=== PATIENT | female | born 1945 | race Caucasian/White ===

== ENCOUNTER 2016-12-26 09:03 | Emergency (ER) | payer MEDICAID, MEDICARE, OTHER ==
[~2016-12-26] VITALS: Ht 172.7 cm; Wt 99.8 kg
[~2016-12-26 09:03] MED LIST: FURO20TA PO; FURO20TA3 PO; GABA-494 PO; LEVO125T66 PO; LISI-646 PO; LORA-653 PO; MAGN400T7 PO; METF-370 PO; NOR10T PO; OXYC10TA44 PO; SIMV10TA73 PO; SOTA80TA PO; TRAM50TA2 PO
[2016-12-26] MEDS ORDERED: SODIUM CHLORIDE 0.9% 1,000 ML IV ONE (09:11)
[2016-12-26 11:50] VITALS: BP 184/90
[2016-12-26 12:17] LABS: Basophils # (auto) 0.1 uL; Basophils % (auto) 0.7 % (0.0-2.0); Eosinophils # (auto) 0.1 uL; Hematocrit 41.2 % (36.0-46.0); Hemoglobin 13.5 g/dL (12.2-16.2); Lymphocytes # (auto) 2.3 uL; Lymphocytes % (auto) 18.2 % (10.0-50.0); Mean Corpuscular Hgb Conc. 32.7 g/dL (32.0-36.0); Mean Corpuscular Volume 88.6 fL (80.0-100.0); Mean Platelet Volume 8.5 fL (6.9-10.8); Monocytes # (auto) 0.9 uL; Monocytes % (auto) 7.2 % (0.0-12.0); Neutrophils # (auto) 9.1 uL; Neutrophils % (auto) 72.9 % (37.0-80.0); Nucleated Red Blood Cells % 0.2 %; Platelet Count (auto) 354 10^3/uL (140-450); Red Cell Distribution Width 14.4 % (11.8-14.3); White Blood Cell 12.5 10^3/uL (4.4-10.8)
[2016-12-26 12:32] LABS: INR 0.95 (0.9-1.15); Partial Thromboplastin Time 19.7 sec (22.64-33.71); Prothrombin Time 10.3 sec (9.37-12.3)
[2016-12-26 12:58] LABS: Albumin 3.4 g/dL (3.4-5.0); Alkaline Phosphatase 120 U/L (45-117); Anion Gap 10 (5-15); Aspartate Aminotransferase 26 U/L (15-37); BUN/Creatinine Ratio 14.7; Blood Urea Nitrogen 15 mg/dL (7-18); Calcium 9.5 mg/dL (8.5-10.1); Carbon Dioxide 24 mmol/L (21-32); Chloride 104 mmol/L (98-107); GFR African American 69 mL/min; GFR Non-African American 57 mL/min; Glucose 149 mg/dL (74-106); Potassium 4.4 mmol/L (3.5-5.1); Sodium 138 mmol/L (136-145)
[2016-12-26] MEDS ORDERED: HYDROcodone-ACET 5/325MG TAB PO ONE (13:15)
[2016-12-26] MEDS ORDERED: LEVOFLOXACIN 500 MG TAB PO ONE (13:45)
[2016-12-26 14:09] LABS: Urine Bilirubin Negative (Negative); Urine Blood 2+ /uL (Negative); Urine Color Yellow (Yellow); Urine Glucose Normal (Normal); Urine Ketone Negative (Negative); Urine Nitrite Negative (Negative); Urine RBC 41 /hpf (0 - 4); Urine Urobilinogen Normal (Negative); Urine WBC Clumps PRESENT /hpf (None Seen)
[2016-12-26 14:23] LABS: B-Type Natriuretic Peptide 231.43 pg/mL (0-100)
[2016-12-26 14:29] LABS: Temperature: 22.7 C (20.0-25.0)
== END 2016-12-26 14:31 | disposition home or self-care (01) ==
LOC: EDBD 09:03 → ER 09:03
DX: S52.125A Nondisplaced fracture of head of left radius, initial encounter for closed fracture (principal); I11.0 Hypertensive heart disease with heart failure; I50.9 Heart failure, unspecified; E11.9 Type 2 diabetes mellitus without complications; I48.91 Unspecified atrial fibrillation; E78.5 Hyperlipidemia, unspecified; Z90.49 Acquired absence of other specified parts of digestive tract; Z95.0 Presence of cardiac pacemaker; Z79.899 Other long term (current) drug therapy; Z88.2 Allergy status to sulfonamides; Z88.8 Allergy status to other drugs, medicaments and biological substances; W01.0XXA Fall on same level from slipping, tripping and stumbling without subsequent striking against object, initial encounter; Y93.89 Activity, other specified; Y99.8 Other external cause status; Y92.89 Other specified places as the place of occurrence of the external cause
CPT/HCPCS: 29125; 36415; 70450; 71010; 73110; 80053; 81001; 83880; 84484; 85025; 85610; 85730; 96360; 96361; 99285; J7030

== ENCOUNTER 2017-08-03 23:04 | Inpatient (IN) | payer OTHER ==
[~2017-08-03] VITALS: Ht 170.2 cm; Wt 84.1 kg
[~2017-08-03 23:04] MED LIST changes: -GABA-494 PO; +GABA100C9 PO
[2017-08-04] MEDS ORDERED: SODIUM CHLORIDE 0.9% 1,000 ML IVB ONE (01:47)
[2017-08-04] MEDS ORDERED: ONDANSETRON HCL 4 MG/2 ML VIAL IV ONE (02:00)
[2017-08-04] MEDS ORDERED: HYDROmorphone HCL 2 MG/ML VL IV ONE (02:00)
[2017-08-04 02:50] LABS: Basophils # (auto) 0.1 uL; Basophils % (auto) 0.4 % (0.0-2.0); Eosinophils # (auto) 0.3 uL; Eosinophils % (auto) 1.6 % (0.0-7.0); Hematocrit 30.7 % (36.0-46.0); Hemoglobin 9.8 g/dL (12.2-16.2); Lymphocytes # (auto) 1.5 uL; Lymphocytes % (auto) 9.4 % (10.0-50.0); Mean Corpuscular Hemoglobin 28.4 pg (28.0-32.0); Mean Corpuscular Hgb Conc. 32.1 g/dL (32.0-36.0); Mean Corpuscular Volume 88.5 fL (80.0-100.0); Monocytes # (auto) 1.1 uL; Monocytes % (auto) 6.8 % (0.0-12.0); Neutrophils # (auto) 13.4 uL; Neutrophils % (auto) 81.8 % (37.0-80.0); Platelet Count (auto) 287 10^3/uL (140-450); Red Blood Cells 3.47 10^6/uL (4.0-5.20); Red Cell Distribution Width 15.7 % (11.8-14.3); White Blood Cell 16.4 10^3/uL (4.4-10.8)
[2017-08-04 02:55] LABS: INR 0.95 (0.9-1.15); Partial Thromboplastin Time 24.3 sec (23.78-33.04); Prothrombin Time 10.2 sec (9.27-12.13)
[2017-08-04 02:56] LABS: BUN/Creatinine Ratio 22.5; Calcium 8.8 mg/dL (8.5-10.1); Potassium 4.4 mmol/L (3.5-5.1)
[2017-08-04 03:01] LABS: Bilirubin, Total 0.4 mg/dL (0.2-1.0); Total Protein 7.1 g/dL (6.4-8.2)
[2017-08-04] MEDS ORDERED: MEPERIDINE HCL (25 MG/ML) 1ML VIAL IV ONE ×2 (04:00→06:15)
[2017-08-04] MEDS: MAGNESIUM SULFATE 1GM/100ML 100 ML IV SCH ×2 (04:17→05:03)
[2017-08-04] MEDS ORDERED: SOD CHL 0.45% 1,000 ML IV ONE (05:45)
[2017-08-04] MEDS ORDERED: ONDANSETRON HCL 4 MG/2 ML VIAL IV PRN (05:45)
[2017-08-04] MEDS ORDERED: MORPHINE SULF INJ 2 MG/ML SYRINGE 1ML IV PRN (05:45)
[2017-08-04] MEDS ORDERED: MORPHINE SULFATE 8mg/ml INJ SDV IV PRN (05:45)
[2017-08-04] MEDS ORDERED: NITROGLYCERIN 0.4 MG SL TAB SL PRN (05:45)
[2017-08-04 07:14] LABS: Basophils # (auto) 0.1 uL; Basophils % (auto) 0.4 % (0.0-2.0); Eosinophils # (auto) 0.1 uL; Eosinophils % (auto) 0.7 % (0.0-7.0); Hematocrit 33.9 % (36.0-46.0); Hemoglobin 10.9 g/dL (12.2-16.2); Lymphocytes % (auto) 6.1 % (10.0-50.0); Mean Corpuscular Hemoglobin 29.4 pg (28.0-32.0); Mean Corpuscular Hgb Conc. 32.2 g/dL (32.0-36.0); Mean Corpuscular Volume 91.2 fL (80.0-100.0); Monocytes # (auto) 1.1 uL; Monocytes % (auto) 7.2 % (0.0-12.0); Neutrophils # (auto) 13.5 uL; Neutrophils % (auto) 85.6 % (37.0-80.0); Platelet Count (auto) 280 10^3/uL (140-450); Red Blood Cells 3.71 10^6/uL (4.0-5.20); Red Cell Distribution Width 15.7 % (11.8-14.3); White Blood Cell 15.8 10^3/uL (4.4-10.8)
[2017-08-04 07:30] LABS: Albumin 3.2 g/dL (3.4-5.0); BUN/Creatinine Ratio 24.3; Potassium 4.4 mmol/L (3.5-5.1)
[2017-08-04 07:33] LABS: Bilirubin, Total 0.5 mg/dL (0.2-1.0); Total Protein 7.5 g/dL (6.4-8.2)
[2017-08-04 08:06] LABS: Urine Bacteria FEW /hpf (None Seen); Urine Blood 2+ /uL (Negative); Urine Specific Gravity 1.014 (1.001-1.035); Urine WBC 109 /hpf (0 - 5); Urine WBC Clumps PRESENT /hpf (None Seen)
[2017-08-04] MEDS ORDERED: DEXTROSE (50%) 50ML SYRG IV PRN (08:15)
[2017-08-04] MEDS: LEVOTHYROXINE SODIUM 100 MCG TAB PO SCH (08:22)
[2017-08-04] MEDS: LORazepam 0.5 MG TAB PO PRN ×3 (08:22→22:17)
[2017-08-04 09:50] VITALS: BP 189/112
[2017-08-04] MEDS: LISINOPRIL 20 MG TAB PO SCH (10:26)
[2017-08-04] MEDS: SOTALOL HCL 80 MG TAB PO SCH ×2 (10:26→22:17)
[2017-08-04] MEDS: FUROSEMIDE 20 MG TAB PO SCH (10:27)
[2017-08-04] MEDS: HYDROcodone-ACET 5/325MG TAB PO PRN ×4 (11:04→22:18)
[2017-08-04] MEDS: InsuLIN REG 1unit/0.01ml Soln (100units/ml) SC SCH ×2 (12:20→17:14)
[2017-08-04] MEDS: ACCU-CHEK COMFORT CURVE STRIP VI SCH ×2 (12:21→17:14)
[2017-08-04 12:50] VITALS: BP 191/83
[2017-08-04] MEDS: hydrALAZINE HCL 25 MG TAB PO PRN (13:06)
[2017-08-04] MEDS: amLODIPine BESYLATE 5 MG TAB PO SCH (13:06)
[2017-08-04 16:49] VITALS: BP 150/89
[2017-08-04 22:00] VITALS: BP 153/84
[2017-08-04] MEDS ORDERED: cefTRIAXone 1GM/10ml IVPUSH 10 ML IV SCH (22:00)
[2017-08-05] MEDS: ACCU-CHEK COMFORT CURVE STRIP VI SCH ×5 (00:08→23:32)
[2017-08-05] MEDS: HYDROcodone-ACET 5/325MG TAB PO PRN ×2 (03:30→08:14)
[2017-08-05 05:00] VITALS: BP 156/78
[2017-08-05 06:00] LABS: Basophils # (auto) 0 uL; Basophils % (auto) 0.3 % (0.0-2.0); Eosinophils # (auto) 0.1 uL; Eosinophils % (auto) 0.5 % (0.0-7.0); Hematocrit 30.9 % (36.0-46.0); Hemoglobin 10.1 g/dL (12.2-16.2); Lymphocytes # (auto) 0.9 uL; Lymphocytes % (auto) 6.2 % (10.0-50.0); Mean Corpuscular Hgb Conc. 32.7 g/dL (32.0-36.0); Mean Corpuscular Volume 88.7 fL (80.0-100.0); Monocytes # (auto) 1.5 uL; Monocytes % (auto) 10.6 % (0.0-12.0); Neutrophils % (auto) 82.4 % (37.0-80.0); Platelet Count (auto) 281 10^3/uL (140-450); Red Blood Cells 3.48 10^6/uL (4.0-5.20); Red Cell Distribution Width 15.3 % (11.8-14.3); White Blood Cell 14.6 10^3/uL (4.4-10.8)
[2017-08-05] MEDS: InsuLIN REG 1unit/0.01ml Soln (100units/ml) SC SCH ×5 (06:00→23:33)
[2017-08-05] MEDS: LEVOTHYROXINE SODIUM 25 MCG TAB PO SCH (06:07)
[2017-08-05] MEDS: LEVOTHYROXINE SODIUM 100 MCG TAB PO SCH (06:07)
[2017-08-05 06:16] LABS: Albumin 2.7 g/dL (3.4-5.0); Calcium 8.4 mg/dL (8.5-10.1); Potassium 3.7 mmol/L (3.5-5.1)
[2017-08-05 06:21] LABS: BUN/Creatinine Ratio 22.9; Bilirubin, Total 0.8 mg/dL (0.2-1.0); Total Protein 6.6 g/dL (6.4-8.2)
[2017-08-05 09:00] VITALS: BP 176/73
[2017-08-05] MEDS ORDERED: HYDROcodone-ACET 10/325MG TAB PO ONE (09:00)
[2017-08-05] MEDS ORDERED: HYDROcodone-ACET 10/325MG TAB PO PRN (09:00)
[2017-08-05] MEDS: LORazepam 0.5 MG TAB PO PRN ×2 (10:51→16:04)
[2017-08-05] MEDS: LISINOPRIL 20 MG TAB PO SCH (10:58)
[2017-08-05] MEDS: SOTALOL HCL 80 MG TAB PO SCH ×2 (10:59→21:41)
[2017-08-05] MEDS: FUROSEMIDE 20 MG TAB PO SCH (11:00)
[2017-08-05] MEDS: amLODIPine BESYLATE 5 MG TAB PO SCH (11:00)
[2017-08-05 13:00] VITALS: BP 161/77
[2017-08-05] MEDS: OXYCODONE W/ ACETAMINOPHEN 5/325MG TABLET PO PRN ×2 (13:35→18:58)
[2017-08-05] MEDS: MEROPENEM 1gm/20ml IVPUSH 20 ML IV SCH ×2 (14:53→21:41)
[2017-08-05] MEDS: MORPHINE SULF 15mg ER tab PO SCH ×2 (16:04→21:41)
[2017-08-05 16:45] VITALS: BP 168/89
[2017-08-05 22:00] VITALS: BP 125/67
[2017-08-06 04:42] VITALS: BP 115/79
[2017-08-06] MEDS: MEROPENEM 1gm/20ml IVPUSH 20 ML IV SCH ×3 (05:36→21:31)
[2017-08-06] MEDS: ACCU-CHEK COMFORT CURVE STRIP VI SCH ×4 (05:37→23:44)
[2017-08-06] MEDS: MORPHINE SULF 15mg ER tab PO SCH (05:37)
[2017-08-06] MEDS: InsuLIN REG 1unit/0.01ml Soln (100units/ml) SC SCH ×4 (05:38→23:43)
[2017-08-06] MEDS: LEVOTHYROXINE SODIUM 100 MCG TAB PO SCH (06:01)
[2017-08-06] MEDS: LEVOTHYROXINE SODIUM 25 MCG TAB PO SCH (06:02)
[2017-08-06 07:01] LABS: Anion Gap 10 (5-15); BUN/Creatinine Ratio 21.2; Blood Urea Nitrogen 28 mg/dL (7-18); Carbon Dioxide 28 mmol/L (21-32); Chloride 98 mmol/L (98-107); GFR African American 51 mL/min; GFR Non-African American 42 mL/min; Glucose 162 mg/dL (74-106); Potassium 3.7 mmol/L (3.5-5.1); Sodium 136 mmol/L (136-145)
[2017-08-06 07:09] LABS: CRP High Sensitivity > 19.0 mg/dL (< 0.3)
[2017-08-06 07:36] LABS: Basophils # (auto) 0 uL; Basophils % (auto) 0.3 % (0.0-2.0); Eosinophils # (auto) 0.2 uL; Eosinophils % (auto) 1.4 % (0.0-7.0); Hematocrit 33.4 % (36.0-46.0); Hemoglobin 10.7 g/dL (12.2-16.2); Lymphocytes # (auto) 1.6 uL; Lymphocytes % (auto) 10.1 % (10.0-50.0); Mean Corpuscular Hemoglobin 28.5 pg (28.0-32.0); Mean Corpuscular Hgb Conc. 31.9 g/dL (32.0-36.0); Mean Corpuscular Volume 89.1 fL (80.0-100.0); Monocytes # (auto) 2.1 uL; Monocytes % (auto) 13.2 % (0.0-12.0); Platelet Count (auto) 321 10^3/uL (140-450); Red Blood Cells 3.74 10^6/uL (4.0-5.20); Red Cell Distribution Width 15.5 % (11.8-14.3)
[2017-08-06 08:00] VITALS: BP 138/71
[2017-08-06 08:54] VITALS: BP 138/71
[2017-08-06] MEDS ORDERED: VANCOMYCIN PER PHARMACY 0 MG IV SCH (09:30)
[2017-08-06] MEDS: OXYCODONE W/ ACETAMINOPHEN 5/325MG TABLET PO PRN ×2 (09:36→19:03)
[2017-08-06] MEDS: SOTALOL HCL 80 MG TAB PO SCH ×2 (09:36→21:32)
[2017-08-06] MEDS: LISINOPRIL 20 MG TAB PO SCH (09:37)
[2017-08-06] MEDS: amLODIPine BESYLATE 5 MG TAB PO SCH (09:37)
[2017-08-06] MEDS: FUROSEMIDE 20 MG TAB PO SCH (09:37)
[2017-08-06] MEDS: VANCOMYCIN 750 MG in D5W 5% 250 ML IV SCH ×2 (09:38→21:47)
[2017-08-06 12:47] VITALS: BP 132/65
[2017-08-06] MEDS: MORPHINE SULF 30 mg ER tab PO SCH ×2 (14:55→21:33)
[2017-08-06 17:03] VITALS: BP 122/62
[2017-08-06 21:54] VITALS: BP 111/65
[2017-08-07] MEDS: OXYCODONE W/ ACETAMINOPHEN 5/325MG TABLET PO PRN (01:58)
[2017-08-07 05:00] VITALS: BP 112/64
[2017-08-07] MEDS: MORPHINE SULF 30 mg ER tab PO SCH ×3 (05:35→22:29)
[2017-08-07] MEDS: MEROPENEM 1gm/20ml IVPUSH 20 ML IV SCH ×3 (05:35→22:27)
[2017-08-07] MEDS: InsuLIN REG 1unit/0.01ml Soln (100units/ml) SC SCH ×3 (05:36→18:00)
[2017-08-07] MEDS: ACCU-CHEK COMFORT CURVE STRIP VI SCH ×3 (05:36→18:08)
[2017-08-07 05:49] LABS: Basophils # (auto) 0.1 uL; Basophils % (auto) 0.4 % (0.0-2.0); Eosinophils # (auto) 0.5 uL; Eosinophils % (auto) 3.6 % (0.0-7.0); Hematocrit 29.8 % (36.0-46.0); Hemoglobin 9.8 g/dL (12.2-16.2); Lymphocytes # (auto) 1.4 uL; Lymphocytes % (auto) 10.3 % (10.0-50.0); Mean Corpuscular Hemoglobin 29.3 pg (28.0-32.0); Mean Corpuscular Hgb Conc. 32.9 g/dL (32.0-36.0); Mean Corpuscular Volume 89.2 fL (80.0-100.0); Monocytes # (auto) 1.7 uL; Monocytes % (auto) 13.1 % (0.0-12.0); Neutrophils # (auto) 9.7 uL; Neutrophils % (auto) 72.6 % (37.0-80.0); Nucleated Red Blood Cells % 0.1 %; Platelet Count (auto) 309 10^3/uL (140-450); Red Blood Cells 3.34 10^6/uL (4.0-5.20); Red Cell Distribution Width 15.4 % (11.8-14.3); White Blood Cell 13.4 10^3/uL (4.4-10.8)
[2017-08-07] MEDS: LEVOTHYROXINE SODIUM 100 MCG TAB PO SCH (06:03)
[2017-08-07] MEDS: LEVOTHYROXINE SODIUM 25 MCG TAB PO SCH (06:03)
[2017-08-07 06:12] LABS: BUN/Creatinine Ratio 24.2; CRP High Sensitivity 14.8 mg/dL (< 0.3); Calcium 8.4 mg/dL (8.5-10.1); Potassium 3.5 mmol/L (3.5-5.1)
[2017-08-07 08:30] VITALS: BP 125/53
[2017-08-07 09:00] VITALS: BP 125/53
[2017-08-07] MEDS ORDERED: MEROPENEM 1gm/20ml IVPUSH 20 ML IV SCH (10:00)
[2017-08-07] MEDS: SOTALOL HCL 80 MG TAB PO SCH ×2 (10:21→22:41)
[2017-08-07] MEDS: VANCOMYCIN 750 MG in D5W 5% 250 ML IV SCH ×2 (10:21→22:27)
[2017-08-07] MEDS: FUROSEMIDE 20 MG TAB PO SCH (10:22)
[2017-08-07] MEDS: LISINOPRIL 20 MG TAB PO SCH (10:22)
[2017-08-07] MEDS: amLODIPine BESYLATE 5 MG TAB PO SCH (10:22)
[2017-08-07 13:00] VITALS: BP 164/99
[2017-08-07 17:00] VITALS: BP 135/67
[2017-08-07 22:00] VITALS: BP 146/81
[2017-08-08] MEDS: ACCU-CHEK COMFORT CURVE STRIP VI SCH ×4 (00:41→17:41)
[2017-08-08] MEDS: InsuLIN REG 1unit/0.01ml Soln (100units/ml) SC SCH ×4 (02:18→17:43)
[2017-08-08] MEDS: MORPHINE SULF 30 mg ER tab PO SCH ×3 (05:24→22:10)
[2017-08-08] MEDS: MEROPENEM 1gm/20ml IVPUSH 20 ML IV SCH ×3 (05:27→22:10)
[2017-08-08 05:48] VITALS: BP 150/70
[2017-08-08 05:53] LABS: Basophils # (auto) 0.1 uL; Basophils % (auto) 0.5 % (0.0-2.0); Eosinophils # (auto) 0.3 uL; Eosinophils % (auto) 3.2 % (0.0-7.0); Hematocrit 31.5 % (36.0-46.0); Hemoglobin 10.5 g/dL (12.2-16.2); Lymphocytes % (auto) 10.2 % (10.0-50.0); Mean Corpuscular Hemoglobin 29.6 pg (28.0-32.0); Mean Corpuscular Hgb Conc. 33.3 g/dL (32.0-36.0); Mean Corpuscular Volume 88.7 fL (80.0-100.0); Monocytes # (auto) 1.5 uL; Monocytes % (auto) 14.6 % (0.0-12.0); Neutrophils # (auto) 7.3 uL; Neutrophils % (auto) 71.5 % (37.0-80.0); Platelet Count (auto) 337 10^3/uL (140-450); Red Blood Cells 3.55 10^6/uL (4.0-5.20); Red Cell Distribution Width 15.5 % (11.8-14.3); White Blood Cell 10.3 10^3/uL (4.4-10.8)
[2017-08-08] MEDS: LEVOTHYROXINE SODIUM 100 MCG TAB PO SCH (05:59)
[2017-08-08] MEDS: LEVOTHYROXINE SODIUM 25 MCG TAB PO SCH (05:59)
[2017-08-08 06:04] LABS: BUN/Creatinine Ratio 29.7; Calcium 8.4 mg/dL (8.5-10.1); Potassium 3.5 mmol/L (3.5-5.1)
[2017-08-08 07:35] VITALS: BP 148/53
[2017-08-08] MEDS: SOTALOL HCL 80 MG TAB PO SCH ×2 (09:38→22:10)
[2017-08-08] MEDS: FUROSEMIDE 20 MG TAB PO SCH (09:39)
[2017-08-08] MEDS: amLODIPine BESYLATE 5 MG TAB PO SCH (09:39)
[2017-08-08] MEDS: LISINOPRIL 20 MG TAB PO SCH (09:40)
[2017-08-08] MEDS: VANCOMYCIN 750 MG in D5W 5% 250 ML IV SCH ×2 (10:02→22:09)
[2017-08-08 10:33] VITALS: BP 148/53
[2017-08-08] MEDS: D5W/SOD CHLO 0.9% 1,000 ML IV SCH ×2 (11:56→20:56)
[2017-08-08] MEDS: OXYCODONE W/ ACETAMINOPHEN 5/325MG TABLET PO PRN (11:57)
[2017-08-08 12:34] VITALS: BP_SYST 157; BP_SYST 177; BP_DIAS 59; BP_DIAS 71
[2017-08-08] MEDS: hydrALAZINE HCL 25 MG TAB PO PRN (12:56)
[2017-08-08 17:31] VITALS: BP 159/61
[2017-08-08 22:00] VITALS: BP 152/95
[2017-08-09] VITALS (7 sets, daily range): BP systolic 141–159; BP diastolic 72–96
[2017-08-09] MEDS: ACCU-CHEK COMFORT CURVE STRIP VI SCH ×4 (00:24→16:54)
[2017-08-09] MEDS: InsuLIN REG 1unit/0.01ml Soln (100units/ml) SC SCH ×4 (00:24→16:54)
[2017-08-09 04:20] LABS: Urine Bacteria MANY /hpf (None Seen); Urine Blood 1+ /uL (Negative); Urine Mucus FEW (None Seen); Urine Specific Gravity 1.019 (1.001-1.035); Urine WBC 1552 /hpf (0 - 5); Urine WBC Clumps PRESENT /hpf (None Seen)
[2017-08-09 04:22] LABS: Urine Budding Yeast Occasional /hpf (None Seen)
[2017-08-09 05:44] LABS: Basophils # (auto) 0 uL; Basophils % (auto) 0.5 % (0.0-2.0); Eosinophils # (auto) 0.4 uL; Eosinophils % (auto) 3.7 % (0.0-7.0); Hematocrit 31.3 % (36.0-46.0); Hemoglobin 10.5 g/dL (12.2-16.2); Lymphocytes # (auto) 1.2 uL; Mean Corpuscular Hemoglobin 29.9 pg (28.0-32.0); Mean Corpuscular Hgb Conc. 33.6 g/dL (32.0-36.0); Mean Corpuscular Volume 89.1 fL (80.0-100.0); Monocytes # (auto) 1.6 uL; Monocytes % (auto) 16.3 % (0.0-12.0); Neutrophils # (auto) 6.7 uL; Neutrophils % (auto) 67.5 % (37.0-80.0); Nucleated Red Blood Cells % 0.1 %; Platelet Count (auto) 320 10^3/uL (140-450); Red Blood Cells 3.52 10^6/uL (4.0-5.20); Red Cell Distribution Width 15.2 % (11.8-14.3); White Blood Cell 9.9 10^3/uL (4.4-10.8)
[2017-08-09 05:52] LABS: INR 0.93 (0.9-1.15); Partial Thromboplastin Time 28.9 sec (23.78-33.04)
[2017-08-09 06:32] LABS: BUN/Creatinine Ratio 30.1; CRP High Sensitivity 8.17 mg/dL (< 0.3); Calcium 8.2 mg/dL (8.5-10.1); Potassium 3.4 mmol/L (3.5-5.1)
[2017-08-09] MEDS: MORPHINE SULF 30 mg ER tab PO SCH ×4 (07:06→21:26)
[2017-08-09] MEDS: MEROPENEM 1gm/20ml IVPUSH 20 ML IV SCH ×3 (07:06→21:22)
[2017-08-09] MEDS: D5W/SOD CHLO 0.9% 1,000 ML IV SCH ×2 (07:07→16:31)
[2017-08-09] MEDS: LEVOTHYROXINE SODIUM 25 MCG TAB PO SCH (07:07)
[2017-08-09] MEDS: LEVOTHYROXINE SODIUM 100 MCG TAB PO SCH (07:07)
[2017-08-09] MEDS ORDERED: POTASSIUM CHLORIDE 40 MEQ in D5W 5% 1,000 ML IV SCH (08:45)
[2017-08-09] MEDS: VANCOMYCIN 750 MG in D5W 5% 250 ML IV SCH ×2 (10:07→21:23)
[2017-08-09] MEDS: amLODIPine BESYLATE 5 MG TAB PO SCH (10:07)
[2017-08-09] MEDS: LISINOPRIL 20 MG TAB PO SCH (10:07)
[2017-08-09] MEDS: FUROSEMIDE 20 MG TAB PO SCH (10:08)
[2017-08-09] MEDS: SOTALOL HCL 80 MG TAB PO SCH ×2 (10:08→21:25)
[2017-08-09] MEDS: POTASSIUM CHL 20MEQ/100ML 100 ML IV SCH ×2 (10:36→12:05)
[2017-08-09] MEDS: OXYCODONE W/ ACETAMINOPHEN 5/325MG TABLET PO PRN (12:29)
[2017-08-10] MEDS: D5W/SOD CHLO 0.9% 1,000 ML IV SCH ×3 (02:30→22:42)
[2017-08-10 05:00] VITALS: BP 155/79
[2017-08-10 05:22] LABS: Basophils # (auto) 0.1 uL; Basophils % (auto) 0.5 % (0.0-2.0); Eosinophils # (auto) 0.2 uL; Eosinophils % (auto) 2.2 % (0.0-7.0); Hematocrit 31.1 % (36.0-46.0); Hemoglobin 10.1 g/dL (12.2-16.2); Lymphocytes # (auto) 1.3 uL; Lymphocytes % (auto) 11.5 % (10.0-50.0); Mean Corpuscular Hemoglobin 28.7 pg (28.0-32.0); Mean Corpuscular Hgb Conc. 32.4 g/dL (32.0-36.0); Mean Corpuscular Volume 88.6 fL (80.0-100.0); Monocytes # (auto) 1.4 uL; Monocytes % (auto) 12.9 % (0.0-12.0); Neutrophils # (auto) 8.2 uL; Neutrophils % (auto) 72.9 % (37.0-80.0); Platelet Count (auto) 336 10^3/uL (140-450); White Blood Cell 11.2 10^3/uL (4.4-10.8)
[2017-08-10] MEDS: MORPHINE SULF 30 mg ER tab PO SCH ×4 (05:25→22:20)
[2017-08-10] MEDS: LEVOTHYROXINE SODIUM 100 MCG TAB PO SCH ×2 (05:26→06:58)
[2017-08-10 05:40] LABS: Calcium 8.1 mg/dL (8.5-10.1); Potassium 3.6 mmol/L (3.5-5.1)
[2017-08-10] MEDS: MEROPENEM 1gm/20ml IVPUSH 20 ML IV SCH ×3 (05:41→22:20)
[2017-08-10] MEDS: InsuLIN REG 1unit/0.01ml Soln (100units/ml) SC SCH ×4 (05:47→18:00)
[2017-08-10] MEDS: ACCU-CHEK COMFORT CURVE STRIP VI SCH ×4 (05:47→17:19)
[2017-08-10] MEDS: LEVOTHYROXINE SODIUM 25 MCG TAB PO SCH ×2 (05:48→06:58)
[2017-08-10 08:00] VITALS: BP 134/78
[2017-08-10 08:19] VITALS: BP 134/78
[2017-08-10] MEDS ORDERED: hydrALAZINE HCL 20 MG/ML VL IV PRN (09:15)
[2017-08-10] MEDS: SOTALOL HCL 80 MG TAB PO SCH ×2 (09:28→22:20)
[2017-08-10] MEDS: VANCOMYCIN 750 MG in D5W 5% 250 ML IV SCH (09:28)
[2017-08-10] MEDS: FUROSEMIDE 20 MG TAB PO SCH (09:29)
[2017-08-10] MEDS: amLODIPine BESYLATE 5 MG TAB PO SCH (09:29)
[2017-08-10] MEDS: LISINOPRIL 20 MG TAB PO SCH (09:30)
[2017-08-10] MEDS: FLUCONAZOLE 200MG/100ML 100 ML IV SCH (11:20)
[2017-08-10 11:57] VITALS: BP 130/79
[2017-08-10 22:00] VITALS: BP 151/77
[2017-08-11] VITALS (7 sets, daily range): BP systolic 125–167; BP diastolic 60–85
[2017-08-11] MEDS: ACCU-CHEK COMFORT CURVE STRIP VI SCH ×4 (00:18→19:25)
[2017-08-11] MEDS: MEROPENEM 1gm/20ml IVPUSH 20 ML IV SCH ×3 (05:40→23:06)
[2017-08-11] MEDS: MORPHINE SULF 30 mg ER tab PO SCH ×2 (05:41→14:05)
[2017-08-11] MEDS: LEVOTHYROXINE SODIUM 100 MCG TAB PO SCH (05:59)
[2017-08-11] MEDS: LEVOTHYROXINE SODIUM 25 MCG TAB PO SCH (05:59)
[2017-08-11] MEDS: InsuLIN REG 1unit/0.01ml Soln (100units/ml) SC SCH ×4 (06:00→18:00)
[2017-08-11 06:07] LABS: Basophils # (auto) 0 uL; Basophils % (auto) 0.4 % (0.0-2.0); Eosinophils # (auto) 0.3 uL; Hematocrit 29.1 % (36.0-46.0); Hemoglobin 9.6 g/dL (12.2-16.2); Lymphocytes # (auto) 1.5 uL; Lymphocytes % (auto) 14.3 % (10.0-50.0); Mean Corpuscular Hemoglobin 29.1 pg (28.0-32.0); Mean Corpuscular Hgb Conc. 32.8 g/dL (32.0-36.0); Mean Corpuscular Volume 88.9 fL (80.0-100.0); Monocytes # (auto) 1.5 uL; Monocytes % (auto) 14.3 % (0.0-12.0); Neutrophils # (auto) 7.3 uL; Platelet Count (auto) 351 10^3/uL (140-450); Red Blood Cells 3.28 10^6/uL (4.0-5.20); Red Cell Distribution Width 15.1 % (11.8-14.3); White Blood Cell 10.7 10^3/uL (4.4-10.8)
[2017-08-11 06:33] LABS: Potassium 3.8 mmol/L (3.5-5.1)
[2017-08-11 06:38] LABS: Albumin 2.3 g/dL (3.4-5.0); BUN/Creatinine Ratio 16.7; Calcium 8.5 mg/dL (8.5-10.1)
[2017-08-11 06:50] LABS: Bilirubin, Total 0.5 mg/dL (0.2-1.0); Total Protein 6.5 g/dL (6.4-8.2)
[2017-08-11] MEDS: D5W/SOD CHLO 0.9% 1,000 ML IV SCH ×2 (09:03→19:25)
[2017-08-11] MEDS: SOTALOL HCL 80 MG TAB PO SCH ×2 (09:39→23:07)
[2017-08-11] MEDS: amLODIPine BESYLATE 5 MG TAB PO SCH (09:39)
[2017-08-11] MEDS: FUROSEMIDE 20 MG TAB PO SCH (09:39)
[2017-08-11] MEDS: ENOXAPARIN SOD 40 MG/0.4 ML SYRINGE SC SCH (09:40)
[2017-08-11] MEDS: LISINOPRIL 20 MG TAB PO SCH (09:40)
[2017-08-11] MEDS: FLUCONAZOLE 200MG/100ML 100 ML IV SCH (11:32)
[2017-08-11] MEDS: FAMOTIDINE 20 MG TAB PO SCH (14:09)
[2017-08-11] MEDS: ASPirin-EC 81 mg tab PO SCH (14:10)
[2017-08-11] MEDS: ATORVASTATIN 20 MG TAB PO SCH (23:06)
[2017-08-12 05:00] VITALS: BP 137/71
[2017-08-12] MEDS: ACCU-CHEK COMFORT CURVE STRIP VI SCH ×5 (06:00→23:55)
[2017-08-12] MEDS: InsuLIN REG 1unit/0.01ml Soln (100units/ml) SC SCH ×5 (06:00→23:56)
[2017-08-12 06:07] LABS: Basophils # (auto) 0.1 uL; Basophils % (auto) 0.4 % (0.0-2.0); Eosinophils # (auto) 0.2 uL; Eosinophils % (auto) 1.7 % (0.0-7.0); Hematocrit 28.7 % (36.0-46.0); Hemoglobin 9.6 g/dL (12.2-16.2); Lymphocytes # (auto) 1.5 uL; Lymphocytes % (auto) 11.9 % (10.0-50.0); Mean Corpuscular Hemoglobin 29.4 pg (28.0-32.0); Mean Corpuscular Hgb Conc. 33.4 g/dL (32.0-36.0); Monocytes # (auto) 1.7 uL; Monocytes % (auto) 13.9 % (0.0-12.0); Neutrophils # (auto) 8.9 uL; Neutrophils % (auto) 72.1 % (37.0-80.0); Platelet Count (auto) 360 10^3/uL (140-450); Red Blood Cells 3.26 10^6/uL (4.0-5.20); Red Cell Distribution Width 14.6 % (11.8-14.3); White Blood Cell 12.4 10^3/uL (4.4-10.8)
[2017-08-12 06:13] LABS: BUN/Creatinine Ratio 17.5; Calcium 8.2 mg/dL (8.5-10.1); Potassium 3.2 mmol/L (3.5-5.1)
[2017-08-12] MEDS: LEVOTHYROXINE SODIUM 100 MCG TAB PO SCH (06:59)
[2017-08-12] MEDS: MEROPENEM 1gm/20ml IVPUSH 20 ML IV SCH ×3 (06:59→23:05)
[2017-08-12] MEDS: LEVOTHYROXINE SODIUM 25 MCG TAB PO SCH (06:59)
[2017-08-12] MEDS: D5W/SOD CHLO 0.9% 1,000 ML IV SCH ×2 (07:00→14:33)
[2017-08-12 08:00] VITALS: BP 133/70
[2017-08-12] MEDS: FUROSEMIDE 20 MG TAB PO SCH (10:00)
[2017-08-12] MEDS: ENOXAPARIN SOD 40 MG/0.4 ML SYRINGE SC SCH (10:32)
[2017-08-12] MEDS: FAMOTIDINE 20 MG TAB PO SCH (10:34)
[2017-08-12] MEDS: LISINOPRIL 20 MG TAB PO SCH (10:34)
[2017-08-12] MEDS: ASPirin-EC 81 mg tab PO SCH (10:35)
[2017-08-12] MEDS: amLODIPine BESYLATE 5 MG TAB PO SCH (10:35)
[2017-08-12] MEDS: SOTALOL HCL 80 MG TAB PO SCH ×2 (10:36→23:07)
[2017-08-12] MEDS: FLUCONAZOLE 100 MG TAB PO SCH (11:03)
[2017-08-12 12:00] VITALS: BP 135/77
[2017-08-12 15:00] VITALS: BP 141/82
[2017-08-12 22:00] VITALS: BP 156/80
[2017-08-12] MEDS: ATORVASTATIN 20 MG TAB PO SCH (23:07)
[2017-08-13] MEDS: HYDROcodone-ACET 10/325MG TAB PO PRN ×2 (00:10→18:45)
[2017-08-13] MEDS: D5W/SOD CHLO 0.9% 1,000 ML IV SCH ×3 (04:15→22:45)
[2017-08-13 05:42] VITALS: BP 152/98
[2017-08-13] MEDS: InsuLIN REG 1unit/0.01ml Soln (100units/ml) SC SCH ×3 (06:00→17:13)
[2017-08-13] MEDS: ACCU-CHEK COMFORT CURVE STRIP VI SCH ×3 (06:00→17:14)
[2017-08-13 06:03] LABS: Basophils # (auto) 0.1 uL; Basophils % (auto) 0.6 % (0.0-2.0); Eosinophils # (auto) 0.1 uL; Eosinophils % (auto) 1.1 % (0.0-7.0); Hematocrit 28.1 % (36.0-46.0); Hemoglobin 9.4 g/dL (12.2-16.2); Lymphocytes # (auto) 1.4 uL; Lymphocytes % (auto) 12.2 % (10.0-50.0); Mean Corpuscular Hemoglobin 29.3 pg (28.0-32.0); Mean Corpuscular Hgb Conc. 33.4 g/dL (32.0-36.0); Mean Corpuscular Volume 87.7 fL (80.0-100.0); Monocytes # (auto) 1.7 uL; Monocytes % (auto) 15.4 % (0.0-12.0); Neutrophils # (auto) 7.8 uL; Neutrophils % (auto) 70.7 % (37.0-80.0); Platelet Count (auto) 356 10^3/uL (140-450); Red Cell Distribution Width 14.9 % (11.8-14.3); White Blood Cell 11.1 10^3/uL (4.4-10.8)
[2017-08-13] MEDS: MEROPENEM 1gm/20ml IVPUSH 20 ML IV SCH ×3 (06:04→22:45)
[2017-08-13 06:15] LABS: BUN/Creatinine Ratio 20.9; Calcium 8.5 mg/dL (8.5-10.1)
[2017-08-13] MEDS: LEVOTHYROXINE SODIUM 25 MCG TAB PO SCH (06:49)
[2017-08-13] MEDS: LEVOTHYROXINE SODIUM 100 MCG TAB PO SCH (06:49)
[2017-08-13 08:00] VITALS: BP 143/73
[2017-08-13] MEDS: FLUCONAZOLE 100 MG TAB PO SCH (09:49)
[2017-08-13] MEDS: amLODIPine BESYLATE 5 MG TAB PO SCH (09:52)
[2017-08-13] MEDS: SOTALOL HCL 80 MG TAB PO SCH ×2 (09:53→22:46)
[2017-08-13] MEDS: FUROSEMIDE 20 MG TAB PO SCH (09:54)
[2017-08-13] MEDS: LISINOPRIL 20 MG TAB PO SCH (09:54)
[2017-08-13] MEDS: ASPirin-EC 81 mg tab PO SCH (09:55)
[2017-08-13] MEDS: FAMOTIDINE 20 MG TAB PO SCH (09:55)
[2017-08-13] MEDS: ENOXAPARIN SOD 40 MG/0.4 ML SYRINGE SC SCH (10:00)
[2017-08-13 12:00] VITALS: BP 140/71
[2017-08-13] MEDS: POTASSIUM CHL 20MEQ/100ML 100 ML IV SCH ×2 (12:18→14:35)
[2017-08-13 16:57] VITALS: BP 140/73
[2017-08-13 22:00] VITALS: BP 124/62
[2017-08-13] MEDS: ATORVASTATIN 20 MG TAB PO SCH (22:46)
[2017-08-14] MEDS: HYDROcodone-ACET 10/325MG TAB PO PRN (02:09)
[2017-08-14 06:00] VITALS: BP 126/72
[2017-08-14] MEDS: InsuLIN REG 1unit/0.01ml Soln (100units/ml) SC SCH ×3 (06:00→12:09)
[2017-08-14] MEDS: ACCU-CHEK COMFORT CURVE STRIP VI SCH ×3 (06:15→12:09)
[2017-08-14] MEDS: MEROPENEM 1gm/20ml IVPUSH 20 ML IV SCH ×2 (06:15→14:47)
[2017-08-14] MEDS: D5W/SOD CHLO 0.9% 1,000 ML IV SCH (06:16)
[2017-08-14 06:41] LABS: Basophils # (auto) 0.1 uL; Basophils % (auto) 0.5 % (0.0-2.0); Eosinophils # (auto) 0.3 uL; Hematocrit 27.9 % (36.0-46.0); Hemoglobin 9.3 g/dL (12.2-16.2); Lymphocytes # (auto) 1.7 uL; Lymphocytes % (auto) 16.9 % (10.0-50.0); Mean Corpuscular Hemoglobin 29.4 pg (28.0-32.0); Mean Corpuscular Hgb Conc. 33.6 g/dL (32.0-36.0); Mean Corpuscular Volume 87.7 fL (80.0-100.0); Monocytes # (auto) 1.4 uL; Monocytes % (auto) 13.7 % (0.0-12.0); Neutrophils # (auto) 6.5 uL; Neutrophils % (auto) 65.9 % (37.0-80.0); Platelet Count (auto) 382 10^3/uL (140-450); Red Blood Cells 3.17 10^6/uL (4.0-5.20); Red Cell Distribution Width 14.4 % (11.8-14.3); White Blood Cell 9.9 10^3/uL (4.4-10.8)
[2017-08-14] MEDS: LEVOTHYROXINE SODIUM 100 MCG TAB PO SCH (06:45)
[2017-08-14] MEDS: LEVOTHYROXINE SODIUM 25 MCG TAB PO SCH (06:45)
[2017-08-14 06:59] LABS: BUN/Creatinine Ratio 18.2; Calcium 8.7 mg/dL (8.5-10.1); Potassium 3.3 mmol/L (3.5-5.1)
[2017-08-14 09:00] VITALS: BP 124/69
[2017-08-14] MEDS ORDERED: POTASSIUM CHL 20MEQ/100ML 100 ML IV ONE (09:00)
[2017-08-14] MEDS ORDERED: FLUCONAZOLE 200MG/100ML 100 ML IV SCH (10:00)
[2017-08-14] MEDS: ASPirin-EC 81 mg tab PO SCH (10:00)
[2017-08-14] MEDS: ENOXAPARIN SOD 40 MG/0.4 ML SYRINGE SC SCH (10:09)
[2017-08-14] MEDS: FAMOTIDINE 20 MG TAB PO SCH (10:10)
[2017-08-14] MEDS: LISINOPRIL 20 MG TAB PO SCH (10:11)
[2017-08-14] MEDS: FUROSEMIDE 20 MG TAB PO SCH (10:11)
[2017-08-14] MEDS: amLODIPine BESYLATE 5 MG TAB PO SCH (10:11)
[2017-08-14] MEDS: SOTALOL HCL 80 MG TAB PO SCH (10:12)
[2017-08-14 13:00] VITALS: BP 123/70
== END 2017-08-14 15:56 | disposition hospice, home (50) | DRG 871 ==
LOC: EDBD 23:04 → ER 23:11 → OVERFLOW 23:12 → WEST WING 08-04 09:33 → TELE-WESTW 08-04 23:30 → WEST WING 08-12 01:06
PROVIDERS: ADMIT Internal Medicine; ATTEND Internal Medicine
PROC: 4B02XTZ Measurement of Cardiac Defibrillator, External Approach (ICD-10-PCS; principal; 2017-08-04)
DX: A41.9 Sepsis, unspecified organism (principal); S72.142A Displaced intertrochanteric fracture of left femur, initial encounter for closed fracture; S72.22XA Displaced subtrochanteric fracture of left femur, initial encounter for closed fracture; G92 Toxic encephalopathy; K86.1 Other chronic pancreatitis; I50.20 Unspecified systolic (congestive) heart failure; B37.49 Other urogenital candidiasis; E11.9 Type 2 diabetes mellitus without complications; I11.0 Hypertensive heart disease with heart failure; E03.9 Hypothyroidism, unspecified; E11.8 Type 2 diabetes mellitus with unspecified complications; E78.5 Hyperlipidemia, unspecified; E83.42 Hypomagnesemia; F41.9 Anxiety disorder, unspecified; I48.91 Unspecified atrial fibrillation; J44.9 Chronic obstructive pulmonary disease, unspecified; L72.11 Pilar cyst; R54 Age-related physical debility; Z96.641 Presence of right artificial hip joint; W18.39XA Other fall on same level, initial encounter; M16.12 Unilateral primary osteoarthritis, left hip; B96.5 Pseudomonas (aeruginosa) (mallei) (pseudomallei) as the cause of diseases classified elsewhere; M85.80 Other specified disorders of bone density and structure, unspecified site; Z79.82 Long term (current) use of aspirin; Z79.84 Long term (current) use of oral hypoglycemic drugs; Z79.899 Other long term (current) drug therapy; Z82.49 Family history of ischemic heart disease and other diseases of the circulatory system; Z83.3 Family history of diabetes mellitus; Z95.0 Presence of cardiac pacemaker; Y93.89 Activity, other specified; Y99.8 Other external cause status; Z88.8 Allergy status to other drugs, medicaments and biological substances; Z88.2 Allergy status to sulfonamides; Z90.49 Acquired absence of other specified parts of digestive tract; Y92.198 Other place in other specified residential institution as the place of occurrence of the external cause; Z71.3 Dietary counseling and surveillance
CPT/HCPCS: 36415; 70450; 71045; 72192; 73030; 73501; 80048; 80053; 80202; 81001; 82962; 83735; 83880; 84484; 85025; 85610; 85730; 86141; 86850; 86900; 86901; 87040; 87081; 87086; 87088; 87186; 93005; 93306; 94761; 95819; 96361; 96365; 96366; 96375; 96376; 96379; J1450; J1815; J2405; J3480; J7042; J7060